=== PATIENT | male | born 1940 | race Caucasian/White ===

== ENCOUNTER 2016-11-22 | Outpatient (CLI) | payer MEDICARE, OTHER | END 2016-11-22 16:36 | disposition critical access hospital (66) | CPT/HCPCS: A0425; A0427 ==

== ENCOUNTER 2016-11-22 16:53 | Inpatient (IN) | payer MEDICARE, OTHER ==
[2016-11-22] MEDS ORDERED: HYDROmorphone 1 MG/ML SYRINGE IVP STA ×2 (17:16→18:38)
[2016-11-22] MEDS ORDERED: HYDROmorphone 1 MG/ML SYRINGE ONE ×2 (17:21→18:42)
[2016-11-22] MEDS ORDERED: IOPAMIDOL-300 100 ML VIAL IVP ONE (17:49)
[2016-11-22] MEDS ORDERED: ACETAMINOPHEN 325 MG TABLET PO PRN (18:45)
[2016-11-22] MEDS ORDERED: ONDANSETRON ODT 4 MG TABLET TL PRN (18:45)
[2016-11-22] MEDS: MORPHINE 2 MG/ML SYRINGE IVP PRN (20:09)
[2016-11-22] MEDS: HYDROcod/ACETAM 5/325 MG TABLET PO PRN (21:29)
[2016-11-22] MEDS: SODIUM CHLORIDE FLUSH 0.9% 10 ML SYRINGE IVP SCH (23:30)
[2016-11-23] MEDS: HYDROcod/ACETAM 5/325 MG TABLET PO PRN ×2 (04:34→16:32)
[2016-11-23] MEDS: SODIUM CHLORIDE FLUSH 0.9% 10 ML SYRINGE IVP SCH ×3 (04:35→19:10)
[2016-11-23] MEDS ORDERED: LIDOCAINE 2%-EPI 1:100000 20 ML MDV SUBQ ONE (09:11)
[2016-11-23] MEDS: HYDROmorphone 1 MG/ML SYRINGE IVP PRN ×2 (09:36→19:09)
[2016-11-23] MEDS: POLYETHYLENE GLYCOL 3350 17 GM PACKET PO SCH (15:16)
[2016-11-24] MEDS: HYDROcod/ACETAM 5/325 MG TABLET PO PRN ×2 (00:23→23:42)
[2016-11-24] MEDS: LACTATED RINGERS 1,000 ML IV SCH ×4 (00:23→23:41)
[2016-11-24] MEDS: SODIUM CHLORIDE FLUSH 0.9% 10 ML SYRINGE IVP SCH ×3 (06:41→17:01)
[2016-11-24] MEDS: HYDROmorphone 1 MG/ML SYRINGE IVP PRN (06:43)
[2016-11-24] MEDS ORDERED: WATER FOR INJECTION,STERILE 10 ML ONE (09:00)
[2016-11-24] MEDS: POLYETHYLENE GLYCOL 3350 17 GM PACKET PO SCH (09:34)
[2016-11-24] MEDS ORDERED: ROPIVACAINE 0.5% PF 20 ML AMPULE EP ONE (11:00)
[2016-11-24] MEDS ORDERED: ONDANSETRON 4 MG/2 ML VIAL IVP ONE (11:00)
[2016-11-24] MEDS ORDERED: MIDAZOLAM 2 MG/2 ML VIAL IVP ONE (11:00)
[2016-11-24] MEDS ORDERED: SUCCINYLCHOLINE 200 MG/10 ML VIAL IVP ONE (11:00)
[2016-11-24] MEDS ORDERED: ceFAZolin 1 GM VIAL IV ONE (11:00)
[2016-11-24] MEDS ORDERED: ROCURONIUM 50 MG/5 ML VIAL IVP ONE (11:00)
[2016-11-24] MEDS ORDERED: ACETAMINOPHEN 1,000 MG/100 ML VIAL IV ONE (11:00)
[2016-11-24] MEDS ORDERED: LIDOCAINE-MPF 2% 5 ML VIAL IM ONE (11:00)
[2016-11-24] MEDS ORDERED: DEXAMETHASONE 4 MG/ML VIAL IVP ONE (11:00)
[2016-11-24] MEDS ORDERED: PROPOFOL 200 MG/20 ML VIAL IVP ONE (11:00)
[2016-11-24] MEDS ORDERED: fentaNYL 250 MCG/5 ML VIAL IVP ONE (11:00)
[2016-11-24] MEDS ORDERED: ePHEDrine 50 MG/ML AMP IVP ONE (11:00)
[2016-11-24] MEDS ORDERED: LACTATED RINGERS 1,000 ML IV ONE ×3 (11:25→12:47)
[2016-11-24] MEDS ORDERED: BUPIVACAINE 0.25%-EPI 1:200000 PF 30 ML VIAL SUBQ ONE ×2 (12:12)
[2016-11-24] MEDS: ceFAZolin 2 GM/50 ML 50 ML IV SCH (17:01)
[2016-11-25] MEDS: ceFAZolin 2 GM/50 ML 50 ML IV SCH (01:01)
[2016-11-25] MEDS: HYDROmorphone 1 MG/ML SYRINGE IVP PRN (01:01)
[2016-11-25] MEDS: SODIUM CHLORIDE FLUSH 0.9% 10 ML SYRINGE IVP SCH ×3 (01:02→19:55)
[2016-11-25] MEDS: HYDROcod/ACETAM 5/325 MG TABLET PO PRN ×4 (06:08→19:55)
[2016-11-25] MEDS: ENOXAPARIN 40 MG/0.4 ML SYRINGE SUBQ SCH (09:40)
[2016-11-25] MEDS: LACTATED RINGERS 1,000 ML IV SCH ×3 (09:41→18:10)
[2016-11-25] MEDS: POLYETHYLENE GLYCOL 3350 17 GM PACKET PO SCH (09:41)
[2016-11-26] MEDS: HYDROcod/ACETAM 5/325 MG TABLET PO PRN ×3 (01:03→19:39)
[2016-11-26] MEDS: LACTATED RINGERS 1,000 ML IV SCH ×2 (01:06→09:57)
[2016-11-26] MEDS: SODIUM CHLORIDE FLUSH 0.9% 10 ML SYRINGE IVP SCH ×3 (05:03→22:23)
[2016-11-26] MEDS: HYDROmorphone 1 MG/ML SYRINGE IVP PRN (07:56)
[2016-11-26] MEDS: SODIUM CHLORIDE FLUSH 0.9% 10 ML SYRINGE IVP PRN ×2 (07:57→11:29)
[2016-11-26] MEDS: ENOXAPARIN 40 MG/0.4 ML SYRINGE SUBQ SCH (08:16)
[2016-11-26] MEDS ORDERED: SENNA 8.6 MG TABLET PO SCH (09:00)
[2016-11-26] MEDS: DOCUSATE SODIUM 250 MG CAPSULE PO SCH (10:11)
[2016-11-26] MEDS: POLYETHYLENE GLYCOL 3350 17 GM PACKET PO SCH (10:11)
[2016-11-26] MEDS ORDERED: MAGNESIUM HYDROXIDE 2,400 MG/30 ML UDC PO ONE (10:30)
[2016-11-26] MEDS: MORPHINE 2 MG/ML SYRINGE IVP PRN ×2 (11:28→22:24)
[2016-11-26] MEDS ORDERED: IOPAMIDOL-300 100 ML VIAL IVP ONE (13:27)
[2016-11-26] MEDS ORDERED: IOPAMIDOL-300 50 ML VIAL PO ONE (13:27)
[2016-11-26] MEDS: SENNA 8.6 MG TABLET PO SCH (22:23)
[2016-11-27] MEDS: HYDROcod/ACETAM 5/325 MG TABLET PO PRN ×4 (00:51→18:43)
[2016-11-27] MEDS: SODIUM CHLORIDE FLUSH 0.9% 10 ML SYRINGE IVP SCH ×3 (06:22→22:45)
[2016-11-27] MEDS ORDERED: MAGNESIUM HYDROXIDE 2,400 MG/30 ML UDC PO ONE (07:28)
[2016-11-27] MEDS: POLYETHYLENE GLYCOL 3350 17 GM PACKET PO SCH (09:17)
[2016-11-27] MEDS: DOCUSATE SODIUM 250 MG CAPSULE PO SCH (09:17)
[2016-11-27] MEDS: SENNA 8.6 MG TABLET PO SCH (09:17)
[2016-11-27] MEDS: HYDROmorphone 1 MG/ML SYRINGE IVP PRN (10:52)
[2016-11-27] MEDS: SODIUM CHLORIDE FLUSH 0.9% 10 ML SYRINGE IVP PRN (10:53)
[2016-11-27] MEDS ORDERED: ceFAZolin 2 GM/50 ML 50 ML IV SCH (11:15)
[2016-11-27] MEDS ORDERED: BISACODYL 10 MG SUPP PR ONE (14:30)
[2016-11-28] MEDS: HYDROcod/ACETAM 5/325 MG TABLET PO PRN ×3 (00:38→18:57)
[2016-11-28] MEDS: SODIUM CHLORIDE FLUSH 0.9% 10 ML SYRINGE IVP SCH (06:42)
[2016-11-28] MEDS: MORPHINE 2 MG/ML SYRINGE IVP PRN (09:22)
[2016-11-28] MEDS: SENNA 8.6 MG TABLET PO SCH (09:52)
[2016-11-28] MEDS: POLYETHYLENE GLYCOL 3350 17 GM PACKET PO SCH (09:52)
[2016-11-28] MEDS: DOCUSATE SODIUM 250 MG CAPSULE PO SCH (09:52)
== END 2016-11-28 19:10 | disposition home or self-care (01) | DRG 982 ==
DX: S27.0XXA Traumatic pneumothorax, initial encounter (principal); S42.302A Unspecified fracture of shaft of humerus, left arm, initial encounter for closed fracture; S52.502A Unspecified fracture of the lower end of left radius, initial encounter for closed fracture; S22.42XA Multiple fractures of ribs, left side, initial encounter for closed fracture; S09.90XA Unspecified injury of head, initial encounter; S22.079A Unspecified fracture of T9-T10 vertebra, initial encounter for closed fracture; S42.352A Displaced comminuted fracture of shaft of humerus, left arm, initial encounter for closed fracture; S42.202A Unspecified fracture of upper end of left humerus, initial encounter for closed fracture; S52.592A Other fractures of lower end of left radius, initial encounter for closed fracture; R31.9 Hematuria, unspecified; W11.XXXA Fall on and from ladder, initial encounter; Y93.9 Activity, unspecified; Y92.008 Other place in unspecified non-institutional (private) residence as the place of occurrence of the external cause; Y99.9 Unspecified external cause status

== ENCOUNTER 2016-12-23 15:30 | Outpatient (CLI) | payer MEDICARE, OTHER ==
--- NOTE | 2016-12-24 11:44 | XRAY Report ---
THREE-VIEW LEFT SHOULDER: 12/23/2016 CLINICAL INDICATION: Pain post followup fracture. COMPARISON: 12/09/2016 FINDINGS: Post ORIF changes again identified. The metallic sideplate with multiple cannulated screw s traverses the comminuted proximal humeral fracture. Minimal callus formation is noted. Overall im provement in alignment, near anatomic. The proximal and distal joint spaces are preserved. Patchy demineralization again identified. IMPRESSION: POST ORIF CHANGES. MINIMAL CALLUS FORMATION. IMPROVED ALIGNMENT. JOB #: [id number] EXT JOB #:[id number]
--- NOTE | 2016-12-24 11:44 | XRAY Report ---
THREE-VIEW LEFT WRIST: 12/23/2016 CLINICAL HISTORY: Fracture followup. COMPARISON: 12/09/2016 FINDINGS: Patchy bony demineralization again identified. The comminuted distal radial fracture with dorsal angulation and mild displacement is again identifie d. The alignment is essentially stable. Early callus formation exists. Moderate surrounding soft tissue swelling is noted. The other osseous structures are intact. IMPRESSION: EARLY CALLUS FORMATION ABOUT THE DISTAL COMMINUTED RADIAL FRACTURE. MILD PERSISTENT MICAELA JUDITH DISPLACEMENT/ANGULATION. JOB #: [id number] EXT JOB #:[id number]
== END 2016-12-23 15:31 | disposition home or self-care (01) ==
LOC: DI.N 15:30
PROVIDERS: ATTEND Orthopaedic Surgery
DX: S52.572D Other intraarticular fracture of lower end of left radius, subsequent encounter for closed fracture with routine healing (principal); S42.362D Displaced segmental fracture of shaft of humerus, left arm, subsequent encounter for fracture with routine healing
CPT/HCPCS: 71020